=== PATIENT | female | born 1955 | race Caucasian/White ===

== ENCOUNTER 2018-08-09 19:50 | Inpatient (IN) | payer SELFPAY ==
[~2018-08-09] VITALS: Ht 160 cm; Wt 69.5 kg
[~2018-08-09 19:50] MED LIST: HYDR-3165 PO; ONDA4TAB10 PO
[2018-08-09] MEDS ORDERED: IV NORMAL SALINE 1,000ML 1,000 ML IV SCH (20:23)
[2018-08-09] MEDS ORDERED: ONDANSETRON PF 4 MG/2 ML VIAL. IV ONE (20:30)
--- NOTE | 2018-08-09 20:46 | RAD ---
PROCEDURE: PORTABLE CHEST 1V CLINICAL INDICATION: Fever, body aches. Hx asthma COMPARISON: None FINDINGS: No pneumothorax identified. Cardiac and mediastinal contours unremarkable. No pulmonary consolidation or acute airspace disease. No acute osseous abnormalities identified. IMPRESSION: No pulmonary consolidation or acute airspace disease. Electronically signed by: Jose Marie DO (08/09/2018 8:43 PM) [facility]
[2018-08-09 21:19] LABS: BASO % 0 % (0-3); EOS % 0 % (0-3); HEMATOCRIT 41.1 % (36.0-47.0); HEMOGLOBIN 13.7 g/dL (12.0-15.5); LYMPH # 1.8 x10^3/uL (1.0-4.8); LYMPH % 17 % (24-48); MEAN CORPUSCULAR HEMOGLOBIN 30 pg (25-35); MEAN CORPUSCULAR HGB CONC 33 g/dL (31-37); MEAN CORPUSCULAR VOLUME 89 fL (79-100); MONO # 0.4 x10^3/uL (0.0-1.1); MONO % 4 % (0-9); NEUT # 8.4 x10^3uL (1.8-7.7); NEUT % 79 % (31-73); PLATELET COUNT 263 x10^3/uL (140-400); RED BLOOD COUNT 4.63 x10^6/uL (3.50-5.40); RED CELL DISTRIBUTION WIDTH 14.2 % (11.5-14.5); WHITE BLOOD COUNT 10.7 x10^3/uL (4.0-11.0)
[2018-08-09 21:26] LABS: CLARITY,URINE CLEAR; COLOR,URINE YELLOW
[2018-08-09 21:27] LABS: BACTERIA,URINE 0 /HPF (0-FEW); BILIRUBIN,URINE NEG (NEG); GLUCOSE,URINE NEG (NEG); NITRITE,URINE NEG (NEG); RBC,URINE 0 /HPF (0-2); SQUAMOUS EPITHELIAL CELL,UR MANY /LPF; UROBILINOGEN,URINE 0.2 mg/dL (0.2 mg/dL)
[2018-08-09 21:31] LABS: CALCIUM 9.2 mg/dL (8.5-10.1); CREATININE 0.8 mg/dL (0.6-1.0); GFR 72.7; POTASSIUM 3.4 mmol/L (3.5-5.1); TOTAL BILIRUBIN 0.4 mg/dL (0.2-1.0); TOTAL PROTEIN 8.2 g/dL (6.4-8.2)
[2018-08-09 21:39] LABS: INFLUENZA A PATIENT NEGATIVE (NEGATIVE); INFLUENZA B PATIENT NEGATIVE (NEGATIVE)
[2018-08-09] MEDS ORDERED: IOHEXOL 300 MG/ML 75 ML VIAL. IV ONE (22:15)
[2018-08-09] MEDS ORDERED: CONTRAST GIVEN MC PRN (22:15)
--- NOTE | 2018-08-09 23:37 | RAD ---
EXAM: CT Abdomen and Pelvis with IV contrast CLINICAL HISTORY: Abdominal pain, hx cholecystectomy and partial hysterectomy COMPARISON: none TECHNIQUE: Helical CT of the abdomen and pelvis was performed following the administration of intravenous contrast. Axial, coronal and sagittal reformatted images were generated. PQRS compliance statement - One or more of the following individualized dose reduction techniques were utilized for this study: 1. Automated exposure control 2. Adjustment of the mA and/or kV according to patient size 3. Use of iterative reconstruction technique FINDINGS: Lower chest: A 4 mm right lower lobe pleural-based lung nodule is seen (series 2 image 6). A 4 mm left lower lobe pleural-based lung nodule (series 2 image 9) is also seen. Abdomen and Pelvis: Relative hepatic hypoattenuation to the spleen may be seen with hepatic steatosis. Liver is borderline enlarged measuring 18.1 cm in length. Accounting for postcholecystectomy change, no biliary ductal dilatation. Pancreas is unremarkable. Spleen is unremarkable. Adrenal glands are normal. Symmetric nephrograms. Subcentimeter hypodense right interpolar renal lesion is too small to accurately characterize. No hydronephrosis. The bladder is decompressed. However there is fat infiltration and shaggy appearance of the wall which may be seen with cystitis. Moderate colonic stool content is seen. No small or large bowel dilatation. A few cylindrical calcific or metallic densities are seen most prominent within the right colon. For example a bank representative lesion in the cecum measures 1.4 cm in transverse dimension. These may represent previously ingested material. Appendix is normal. There is been a partial hysterectomy. No abdominal or pelvic lymphadenopathy. No abdominal pelvic ascites. Small fat-containing periumbilical hernia is seen. Small hiatal hernia. Bones: Degenerative changes of the spine are seen. No definite aggressive osseous lesions. IMPRESSION: 1. No evidence for bowel obstruction. 2. Fat infiltration about and thickening of the bladder wall, possibly from decompressed state or cystitis. Cylindrical metallic/calcific densities most prominent within the cecum likely previously ingested material. 3. Small hiatal hernia. 4. Borderline hepatomegaly. Borderline hepatic hypoattenuation relative to the spleen, suspect hepatic steatosis. Electronically signed by: Cory Park MD (08/09/2018 11:35 PM) [facility] [id number]
--- NOTE | 2018-08-09 23:46 | PHYS DOC ---
Past History Past Medical History: Asthma, IBS, Migraines Past Surgical History: Cholecystectomy, Hysterectomy, Tonsillectomy, Other Alcohol Use: None Drug Use: None Adult General Chief Complaint Chief Complaint: HEADACHE HPI HPI Patient is a 63-year-old female who presents with complaint of abdominal pain with nausea, vomiting and diarrhea that started yesterday. She states that the diarrhea had resolved by this morning but states that she did have one additional episode of vomiting this morning. She reports a total of 5 episodes of vomiting yesterday. Patient states that she is concerned that she may have eaten some undercooked chicken and gotten food poisoning. She states that her symptoms began about a half an hour after eating the chicken. She also complains of a headache that she rates at a 10 out of 10. She states that she does have a history of migraines. She rates the pain in her abdomen and back as being moderate. She describes that pain as being crampy. Review of Systems Review of Systems Constitutional: Denies fever or chills [] Respiratory: Denies cough or shortness of breath [] Cardiovascular: No additional information not addressed in HPI [] GI: Complains of abdominal pain with nausea, vomiting and diarrhea [] Musculoskeletal: Complains of back pain [] Integument: Denies rash or skin lesions [] Neurologic: Complains of headache without focal weakness or sensory changes [] All other systems were reviewed and found to be within normal limits, except as documented in this note. Current Medications Current Medications Current Medications Medications (Trade) Dose Ordered Sig/Bina Start Time Stop Time Status Last Admin Dose Admin Fentanyl Citrate (Fentanyl 2ml Vial) 25 mcg PRN Q15MIN PRN 08/09/18 20:30 08/10/18 20:29 08/09/18 21:07 25 MCG Info (Do NOT chart on this entry -- for MONITORING) 1 each PRN DAILY PRN 08/09/18 22:15 08/11/18 22:14 Iohexol (Omnipaque 300 Mg/ml) 75 ml 1X ONCE 08/09/18 22:15 08/09/18 22:16 DC 08/09/18 22:15 75 ML Ondansetron HCl (Zofran) 4 mg 1X ONCE 08/09/18 20:30 08/09/18 20:32 DC 08/09/18 21:06 4 MG Sodium Chloride 1,000 ml @ 1,000 mls/hr Q1H 08/09/18 20:23 08/09/18 21:22 DC 08/09/18 21:05 1,000 MLS/HR Allergies Allergies Allergies Coded Allergies Type Severity Reaction Last Updated Verified Sulfa (Sulfonamide Antibiotics) Allergy Unknown 05/16/16 Yes clarithromycin Allergy Unknown 08/09/18 Yes estrogens, conjugated Allergy Unknown 05/16/16 Yes Physical Exam Physical Exam Constitutional: Well developed, well nourished, no acute distress, non-toxic appearance. [] HENT: Normocephalic, atraumatic, bilateral external ears normal, oropharynx moist, no oral exudates, nose normal. [] Eyes: PERRLA, EOMI, conjunctiva normal, no discharge. [] Neck: Normal range of motion, no tenderness, supple, no stridor. [] Cardiovascular:Heart rate regular rhythm, no murmur [] Lungs & Thorax: Bilateral breath sounds clear to auscultation [] Abdomen: Bowel sounds normal, soft, no tenderness, no masses, no pulsatile masses. [] Skin: Warm, dry, no erythema, no rash. [] Back: No tenderness, no CVA tenderness. [] Extremities: No tenderness, no cyanosis, no clubbing, ROM intact, no edema. [] Neurologic: Alert and oriented X 3, normal motor function, normal sensory function, no focal deficits noted. [] Psychologic: Affect normal, judgement normal, mood normal. [] Current Patient Data Vital Signs Vital Signs Date Time Temp Pulse Resp B/P (MAP) Pulse Ox O2 Delivery O2 Flow Rate FiO2 08/09/18 21:27 92 20 128/71 (90) 98 Room Air 08/09/18 20:00 99.3 Lab Results Laboratory Tests Test 08/09/18 20:43 08/09/18 20:50 08/09/18 20:53 08/09/18 20:56 Urine Collection Type Unknown Urine Color Yellow Urine Clarity Clear Urine pH 6.5 Urine Specific [place] <=1.005 Urine Protein Neg (NEG-TRACE) Urine Glucose (UA) Neg mg/dL (NEG) Urine Ketones (Stick) Trace mg/dL (NEG) Urine Blood Neg (NEG) Urine Nitrite Neg (NEG) Urine Bilirubin Neg (NEG) Urine Urobilinogen Dipstick 0.2 mg/dL (0.2 mg/dL) Urine Leukocyte Esterase Neg (NEG) Urine RBC 0 /HPF (0-2) Urine WBC 1-4 /HPF (0-4) Urine Squamous Epithelial Cells Many /LPF Urine Bacteria 0 /HPF (0-FEW) White Blood Count 10.7 x10^3/uL (4.0-11.0) Red Blood Count 4.63 x10^6/uL (3.50-5.40) Hemoglobin 13.7 g/dL (12.0-15.5) Hematocrit 41.1 % (36.0-47.0) Mean Corpuscular Volume 89 fL (79-100) Mean Corpuscular Hemoglobin 30 pg (25-35) Mean Corpuscular Hemoglobin Concent 33 g/dL (31-37) Red Cell Distribution Width 14.2 % (11.5-14.5) Platelet Count 263 x10^3/uL (140-400) Neutrophils (%) (Auto) 79 % (31-73) H Lymphocytes (%) (Auto) 17 % (24-48) L Monocytes (%) (Auto) 4 % (0-9) Eosinophils (%) (Auto) 0 % (0-3) Basophils (%) (Auto) 0 % (0-3) Neutrophils # (Auto) 8.4 x10^3uL (1.8-7.7) H Lymphocytes # (Auto) 1.8 x10^3/uL (1.0-4.8) Monocytes # (Auto) 0.4 x10^3/uL (0.0-1.1) Eosinophils # (Auto) 0.0 x10^3/uL (0.0-0.7) Basophils # (Auto) 0.0 x10^3/uL (0.0-0.2) Sodium Level 139 mmol/L (136-145) Potassium Level 3.4 mmol/L (3.5-5.1) L Chloride Level 100 mmol/L (98-107) Carbon Dioxide Level 26 mmol/L (21-32) Anion Gap 13 (6-14) Blood Urea Nitrogen 13 mg/dL (7-20) Creatinine 0.8 mg/dL (0.6-1.0) Estimated GFR (Cockcroft-Gault) 72.7 BUN/Creatinine Ratio 16 (6-20) Glucose Level 102 mg/dL (70-99) H Calcium Level 9.2 mg/dL (8.5-10.1) Total Bilirubin 0.4 mg/dL (0.2-1.0) Aspartate Amino Transferase (AST) 532 U/L (15-37) H Alanine Aminotransferase (ALT) 656 U/L (14-59) H Alkaline Phosphatase 218 U/L (46-116) H Total Protein 8.2 g/dL (6.4-8.2) Albumin 4.0 g/dL (3.4-5.0) Albumin/Globulin Ratio 1.0 (1.0-1.7) Influenza Type A (Rapid) Negative (NEGATIVE) Influenza Type B (Rapid) Negative (NEGATIVE) Group A Streptococcus Rapid Negative (NEGATIVE) EKG EKG [] Radiology/Procedures Radiology/Procedures [] Impressions: EXAM: CT Abdomen and Pelvis with IV contrast CLINICAL HISTORY: Abdominal pain, hx cholecystectomy and partial hysterectomy COMPARISON: none TECHNIQUE: Helical CT of the abdomen and pelvis was performed following the administration of intravenous contrast. Axial, coronal and sagittal reformatted images were generated. PQRS compliance statement - One or more of the following individualized dose reduction techniques were utilized for this study: 1. Automated exposure control 2. Adjustment of the mA and/or kV according to patient size 3. Use of iterative reconstruction technique FINDINGS: Lower chest: A 4 mm right lower lobe pleural-based lung nodule is seen (series 2 image 6). A 4 mm left lower lobe pleural-based lung nodule (series 2 image 9) is also seen. Abdomen and Pelvis: Relative hepatic hypoattenuation to the spleen may be seen with hepatic steatosis. Liver is borderline enlarged measuring 18.1 cm in length. Accounting for postcholecystectomy change, no biliary ductal dilatation. Pancreas is unremarkable. Spleen is unremarkable. Adrenal glands are normal. Symmetric nephrograms. Subcentimeter hypodense right interpolar renal lesion is too small to accurately characterize. No hydronephrosis. The bladder is decompressed. However there is fat infiltration and shaggy appearance of the wall which may be seen with cystitis. Moderate colonic stool content is seen. No small or large bowel dilatation. A few cylindrical calcific or metallic densities are seen most prominent within the right colon. For example a client service representative lesion in the cecum measures 1.4 cm in transverse dimension. These may represent previously ingested material. Appendix is normal. There is been a partial hysterectomy. No abdominal or pelvic lymphadenopathy. No abdominal pelvic ascites. Small fat-containing periumbilical hernia is seen. Small hiatal hernia. Bones: Degenerative changes of the spine are seen. No definite aggressive osseous lesions. IMPRESSION: 1. No evidence for bowel obstruction. 2. Fat infiltration about and thickening of the bladder wall, possibly from decompressed state or cystitis. Cylindrical metallic/calcific densities most prominent within the cecum likely previously ingested material. 3. Small hiatal hernia. 4. Borderline hepatomegaly. Borderline hepatic hypoattenuation relative to the spleen, suspect hepatic steatosis. Electronically signed by: Cory Park MD (08/09/2018 11:35 PM) [facility] [place] Course & Med Decision Making Course & Med Decision Making Pertinent Labs and Imaging studies reviewed. (See chart for details) [] Dragon Disclaimer Dragon Disclaimer This electronic medical record was generated, in whole or in part, using a voice recognition dictation system. Departure Departure: Impression: Primary Impression: Acute hepatitis Additional Impression: Intractable migraine Disposition: 09 ADMITTED INPATIENT Admitting Physician: Filomena Reyes Condition: IMPROVED Referrals: PCP,NO (PCP) Problem Qualifiers Additional Impression: Intractable migraine Migraine type: without aura Status migrainosus presence: without status migrainosus Qualified Codes: G43.019 - Migraine without aura, intractable, without status migrainosus VIVI BRADLEY Jr. DO Aug 09, 2018 23:46
[2018-08-10] MEDS ORDERED: MORPHINE SULFATE 4 MG/ML DISP.SYRIN. IV PRN (00:30)
[2018-08-10] MEDS ORDERED: ONDANSETRON PF 4 MG/2 ML VIAL. IV PRN (00:30)
[2018-08-10] MEDS ORDERED: ACETAMINOPHEN 325 MG TABLET PO PRN (00:30)
[2018-08-10 01:48] VITALS: BP 115/56
[2018-08-10] MEDS: IV NORMAL SALINE 1,000ML 1,000 ML IV SCH ×2 (01:56→11:20)
--- NOTE | 2018-08-10 04:33 | NUR ---
NEW ADMISSION FROM ED ARRIVING TO UNIT @ 0120 WITH DAUGHTER AT BEDSIDE. ASSESSMENT CHARTED. ADMISSION CHARTED WITH CONSENTS SIGNED AND ORDERS REVIEWED. PT STILL HAVING HEADACHE BUT DID NOT REQUEST ANY ADDITIONAL MEDICATIONS AFTER BEING MEDICATED IN THE ED. DAUGHTER LEFT AFTER ADMISSION QUESTIONS AND WILL RETURN IN THE AM. CALL LIGHT IN REACH. CONTINUE WITH PLAN OF CARE.
[2018-08-10 07:48] VITALS: BP 110/58
[2018-08-10] MEDS ORDERED: OMEP40CA5 PO (07:53)
[2018-08-10] MEDS: PANTOPRAZOLE 40 MG TABLET. PO SCH (08:18)
[2018-08-10 10:34] LABS: ALBUMIN/GLOBULIN RATIO 0.9 (1.0-1.7); CALCIUM 7.8 mg/dL (8.5-10.1); CREATININE 0.7 mg/dL (0.6-1.0); GFR 84.8; POTASSIUM 3.1 mmol/L (3.5-5.1); TOTAL BILIRUBIN 0.2 mg/dL (0.2-1.0); TOTAL PROTEIN 6.4 g/dL (6.4-8.2)
--- NOTE | 2018-08-10 10:49 | HP ---
ADMIT DATE: 08/10/2018 HISTORY OF PRESENT ILLNESS: The patient is a 63-year-old female patient, who came to the Emergency Room complaining of abdominal pain, nausea, vomiting and diarrhea that started yesterday. She said the diarrhea has resolved by this morning, but stated that she did have one additional episode of vomiting this morning. She reports a total of 5 episodes of vomiting since yesterday. She stated that she is also concerned that she may have eaten some undercooked chicken and gotten food poisoning. She states that her symptoms began about half an hour after eating the chicken. She also complained of headache and she rates headache at 10/10. She is known to have migraine headache and she used to be on Imitrex. She was extensively investigated in the Emergency Room and was found to have hypokalemia and markedly deranged liver enzymes, AST of 532, ALT of 656 and alkaline phosphatase of 218, blood sugar was high also. Her urinalysis was unremarkable and her influenza A and B as well as group A streptococcus was negative. Her chest x-ray was unremarkable. CT scan of the abdomen and pelvis showed no evidence of bowel obstruction. She was noted fat infiltration and bladder wall thickening. She has cylindrical metallic calcific deposits most prominent within the cecum, likely previously ingested material. She was found to have small hiatal hernia and borderline hepatomegaly borderline hepatic hypoattenuation relative to this pain, suspecting hepatic steatosis. She was admitted, was continued on IV antibiotic. Got her with pain medication, antiemetic and will follow her closely and repeat her labs as needed. PAST MEDICAL HISTORY: Significant for migraine headache, bronchial asthma, irritable bowel syndrome, hypertension, gastroesophageal reflux disease and osteoarthritis. She also has esophageal stricture. PAST SURGICAL HISTORY: Significant for cholecystectomy, total abdominal hysterectomy, bilateral salpingectomy, right lumpectomy, tonsillectomy, adenoidectomy as well deviated septum repair. She has right cervical lymphadenectomy, colonoscopy and esophageal dilatation. ALLERGIES: She is allergic to PREMARIN, BIAXIN, and SULFA DRUGS. MEDICATIONS: She is currently on hydrocodone/APAP 5/325 one to two tablets every 6 hours, ondansetron 4 mg every 6 hours and omeprazole 40 mg once a day. FAMILY HISTORY: She has 1 younger sister was known to have hypertension. Her father at the age of 60 because of myocardial infarction. Mother is still alive at age of 80 is known to have hypertension and diabetes. SOCIAL HISTORY: She is , has 3 daughters. She never smoked, does not drink alcohol or use any recreational drugs. 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 REVIEW OF SYSTEMS: The patient denied any blurring of vision, cataract, glaucoma or macular degeneration. Denied any earache, tinnitus or sensorineural deafness. Denied any nosebleeds, stuffy nose or postnasal drip. Denied any sore throat, sore tongue, toothache, hoarseness of voice. Did complain of difficulty swallowing, particularly to solid foods as her esophageal stricture was dilated once before. She denied any hematemesis, melena or hematochezia. Denied any dysuria, frequency or hematuria. Denied any chest pain, shortness of breath, orthopnea or paroxysmal nocturnal dyspnea. Denied any cough, phlegm or hemoptysis. PHYSICAL EXAMINATION: GENERAL: On arrival to the hospital, she was somewhat pale, no jaundice, cyanosis or thyromegaly. No jugular venous distention. No limb edema. VITAL SIGNS: Her heart rate was 122, blood pressure 128/71, temperature was 99.3, respiratory rate 20, and oxygen saturation was 97% on room air. HEAD, EYES, EARS, NOSE, AND THROAT: Showed normocephalic, atraumatic. NECK: Supple. HEART: Showed normal first and second heart sounds. No gallop, rub or murmur. CHEST: Clear to auscultation. No crepitation or rhonchi. ABDOMEN: Distended, soft, nontender with tenderness mostly in the right upper quadrant. There is no guarding or rigidity. No organomegaly. All hernial orifice intact. Bowel sounds normal. NEUROLOGIC: She is awake, alert, responding appropriately. All cranial nerves intact. EXTREMITIES: She moves extremities without difficulty. LABORATORY DATA: Showed that her white cell count was 10,700, hemoglobin 13.7, hematocrit 41, MCV 89 and platelet count 263,000 with normal manual differential. Her chemistry showed serum sodium 139, potassium 3.4, chloride 100, bicarbonate 29. Her anion gap of 13, BUN 13, creatinine 0.8, estimated GFR was 72 mL per minute. Her glucose 102, calcium was 9.2. Total bilirubin is normal. AST, ALT, alkaline phosphatase are all elevated. Total protein was 8.2, albumin was 4. Her influenza A and B are negative as well as streptococcal group A are negative. Her urinalysis was unremarkable. SUMMARY: This is a 63-year-old female patient, who was admitted with recurrent bouts of nausea, vomiting as well as diarrhea and diffuse abdominal pain. Extensive investigation showed that she has deranged liver enzyme without any evidence of any intra or extrahepatic biliary obstruction. We did order hepatitis serology result of which is still pending at the time of this dictation. Meanwhile, we will continue with IV fluid, antiemetic and pain medication and start with a clear liquid diet and advance as tolerated. BELTRAN FITCH MD DR: SABRA/caroline JOB#: [id number] / [id number]
[2018-08-10 12:24] VITALS: BP 120/64
[2018-08-10] MEDS ORDERED: POTASSIUM CHLORIDE 20 MEQ TABLET.ER. PO ONE (13:30)
[2018-08-10] MEDS: POTASSIUM CL 40MEQ D5-0.45NACL 1,000 ML IV SCH (14:23)
[2018-08-10 14:55] VITALS: BP 116/69
[2018-08-10 21:25] VITALS: BP 144/63
[2018-08-11] MEDS: POTASSIUM CL 40MEQ D5-0.45NACL 1,000 ML IV SCH ×2 (00:29→08:16)
[2018-08-11 06:05] VITALS: BP 132/65
[2018-08-11 06:51] LABS: BASO % 0 % (0-3); EOS % 0 % (0-3); HEMATOCRIT 31.6 % (36.0-47.0); HEMOGLOBIN 10.6 g/dL (12.0-15.5); LYMPH % 28 % (24-48); MEAN CORPUSCULAR HEMOGLOBIN 30 pg (25-35); MEAN CORPUSCULAR HGB CONC 34 g/dL (31-37); MEAN CORPUSCULAR VOLUME 90 fL (79-100); MONO # 0.5 x10^3/uL (0.0-1.1); MONO % 8 % (0-9); NEUT # 4.5 x10^3uL (1.8-7.7); NEUT % 64 % (31-73); PLATELET COUNT 188 x10^3/uL (140-400); RED BLOOD COUNT 3.53 x10^6/uL (3.50-5.40); RED CELL DISTRIBUTION WIDTH 14.4 % (11.5-14.5)
[2018-08-11 07:08] LABS: ALBUMIN/GLOBULIN RATIO 0.9 (1.0-1.7); CALCIUM 8.1 mg/dL (8.5-10.1); CREATININE 0.6 mg/dL (0.6-1.0); GFR 101.3; POTASSIUM 3.9 mmol/L (3.5-5.1); TOTAL BILIRUBIN 0.2 mg/dL (0.2-1.0); TOTAL PROTEIN 6.5 g/dL (6.4-8.2)
[2018-08-11] MEDS ORDERED: ONDANSETRON ODT 4 MG TAB.RAPDIS PO PRN (08:00)
--- NOTE | 2018-08-11 08:00 | NUR ---
Patient doing well this morning, states she is a little nausea but would like to eat a light breakfast. PRN zofran given and patient was able to tolerate 50% of meal. States he stomach is still in pain but tolerable, states some issues are from her IBS.
[2018-08-11] MEDS: PANTOPRAZOLE 40 MG TABLET. PO SCH (08:15)
--- NOTE | 2018-08-11 10:40 | NUR ---
Patient discharged at this time independently with mother to personal car. Belongings and DC instructions left with patient. Patient able to verbalize DC instructions, will be back 08/15/18 for CMP follow up. Advised to come back to hospital if symptoms worsen. IV removed at this time.
== END 2018-08-11 10:47 | disposition home or self-care (01) | DRG 443 ==
LOC: ER 19:50 → ICU 08-10 01:07
PROVIDERS: ADMIT Internal Medicine; ATTEND Internal Medicine
DX: B17.9 Acute viral hepatitis, unspecified (principal); G43.919 Migraine, unspecified, intractable, without status migrainosus; M19.90 Unspecified osteoarthritis, unspecified site; E87.6 Hypokalemia; I10 Essential (primary) hypertension; J45.909 Unspecified asthma, uncomplicated; K21.9 Gastro-esophageal reflux disease without esophagitis; K44.9 Diaphragmatic hernia without obstruction or gangrene; Z82.49 Family history of ischemic heart disease and other diseases of the circulatory system; Z79.899 Other long term (current) drug therapy; Z83.3 Family history of diabetes mellitus; Z90.710 Acquired absence of both cervix and uterus; Z90.49 Acquired absence of other specified parts of digestive tract; Z88.2 Allergy status to sulfonamides; Z88.8 Allergy status to other drugs, medicaments and biological substances
CPT/HCPCS: 36415; 71045; 74177; 80053; 81001; 85025; 86705; 86709; 86803; 87040; 87070; 87340; 87804; 87880; 96361; 96374; 96375; J2405; J3010; J7042; Q0162; Q9967; 99285-25; J7030